=== PATIENT | male | born 2000 | race Caucasian/White ===

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

== ENCOUNTER 2019-05-26 15:42 | Emergency (ER) | payer MEDICAID ==
[~2019-05-26] VITALS: Ht 185.4 cm; Wt 79.5 kg
[~2019-05-26 15:42] MED LIST changes: +DOXYCYCLINE HY100 M2 PO; +TORADOL10 MG PO
[2019-05-26 15:46] VITALS: Ht 185.4 cm; Wt 79.5 kg
[2019-05-26 16:42] LABS: BASOPHILS 0.6 % (0-2); EOSINOPHILS 1.4 % (0-7); HEMATOCRIT 45.4 % (42.0-54.0); HEMOGLOBIN 14.3 g/dL (13.5-17.5); IMMATURE GRANULOCYTES 0.1 % (0-5); LYMPHOCYTES 32.5 % (15-50); MCH 23.6 pg (26.0-34.0); MCHC 31.5 g/dL (31.0-37.0); MEAN PLATELET VOLUME 10.1 fL (7.4-10.4); MONOCYTES 11.1 % (2-11); NEUTROPHILS 54.3 % (40-80); RBC 6.05 10x6/uL (4.20-6.10); RDW 13.5 % (11.5-14.5); WBC 6.9 10x3/uL (4.8-10.8)
[2019-05-26 16:49] LABS: PLATELET COUNT 240 10x3/uL (130-400)
[2019-05-26 16:50] LABS: CALC OSMOLALITY 283 mosm/kg (275-300); CALCIUM 9.2 mg/dL (8.5-10.1); CARBON DIOXIDE 21.3 mmol/L (21.0-32.0); CHLORIDE - SERUM 105 mmol/L (98-107); CREATININE - SERUM 1.2 mg/dL (0.6-1.3); GLUCOSE 120 mg/dL (74-106); SODIUM 143 mmol/L (136-145); UREA NITROGEN 8 mg/dL (7-18); eGFR NON AFRICAN AMERICAN 82 mL/min (90-120)
[2019-05-26 16:54] LABS: INR 1.09 (0.85-1.17); PROTIME 13.6 SECONDS (11.6-15.0)
[2019-05-26 16:56] LABS: ALBUMIN 4.6 g/dL (3.4-5.0); ALKALINE PHOSPHATASE 92 U/L (46-116); ALT (SGPT) 22 U/L (10-68); BILIRUBIN - TOTAL 0.37 mg/dL (0.2-1.3); PROTEIN - SERUM 8.5 g/dL (6.4-8.2)
[2019-05-26] MEDS ORDERED: HYDROCODONE-A1 UDTA2 PO (17:14)
[2019-05-26] MEDS ORDERED: KEFLEX500 MG PO (17:14)
[2019-05-26 20:52] VITALS: BP 133/79
== END 2019-05-26 20:53 | disposition home or self-care (01) ==
LOC: D.ER 15:42
PROVIDERS: Family Medicine
DX: S71.101A Unspecified open wound, right thigh, initial encounter (principal); X95.9XXA Assault by unspecified firearm discharge, initial encounter; Y93.9 Activity, unspecified; Y92.9 Unspecified place or not applicable

== ENCOUNTER 2019-06-13 17:46 | Emergency (ER) | payer OTHER ==
[~2019-06-13] VITALS: Ht 185.4 cm; Wt 68.2 kg
[~2019-06-13 17:46] MED LIST changes: +HYDROCODONE-A1 UDTA2 PO; +KEFLEX500 MG PO
[2019-06-13 17:48] VITALS: Ht 185.4 cm; Wt 68.2 kg
[2019-06-13] MEDS ORDERED: IBUPROFEN800 MG PO (17:56)
[2019-06-13] MEDS ORDERED: MUPIROCIN22 GM TOPICAL (17:56)
[2019-06-13 18:22] VITALS: BP 131/93
== END 2019-06-13 18:23 | disposition home or self-care (01) ==
LOC: D.ER 17:46
DX: M79.604 Pain in right leg (principal); Z87.898 Personal history of other specified conditions

== ENCOUNTER 2019-11-20 23:53 | Observation (INO) | payer MEDICAID ==
[~2019-11-20] VITALS: Ht 185.4 cm; Wt 72.6 kg
[~2019-11-20 23:53] MED LIST changes: +MUPIROCIN22 GM TOPICAL
[2019-11-21] VITALS (9 sets, daily range): BP systolic 123–140; BP diastolic 60–98; Ht 185.4 cm; Wt 72.6 kg
--- NOTE | 2019-11-21 00:22 | NUR ---
PT LEFT FOR ORDERED IMAGING AT THIS TIME VIA STRETCHER.
--- NOTE | 2019-11-21 00:24 | NUR ---
THIS NURSE RETURNED CALL TO PT'S MOTHER, CODEY STONER AT [phone] PT MOTHER AGREES TO CALL BACK IN AN HOUR OR SO WHEN WE MIGHT HAVE MORE INFORMATION.
[2019-11-21 00:27] LABS: HEMATOCRIT 42.2 % (42.0-54.0); HEMOGLOBIN 12.7 g/dL (13.5-17.5); LYMPHOCYTES 23.7 % (15-50); MCH 22.7 pg (26.0-34.0); MCHC 30.1 g/dL (31.0-37.0); MCV 75.5 fL (80.0-100.0); MEAN PLATELET VOLUME 9.9 fL (7.4-10.4); NEUTROPHILS 64.1 % (40-80); PLATELET COUNT 216 10x3/uL (130-400); RBC 5.59 10x6/uL (4.20-6.10); RDW 13.4 % (11.5-14.5); WBC 6.7 10x3/uL (4.8-10.8)
[2019-11-21 00:30] LABS: BILIRUBIN NEGATIVE (NEGATIVE); GLUCOSE NEGATIVE (NEGATIVE); KETONE NEGATIVE (NEGATIVE); NITRITE NEGATIVE (NEGATIVE); UROBILINOGEN NORMAL (NORMAL)
[2019-11-21 00:42] LABS: CALC OSMOLALITY 281 mosm/kg (275-300); CALCIUM 9.1 mg/dL (8.5-10.1); CARBON DIOXIDE 29.4 mmol/L (21.0-32.0); CHLORIDE - SERUM 107 mmol/L (98-107); CREATININE - SERUM 0.9 mg/dL (0.6-1.3); GLUCOSE 103 mg/dL (74-106); SODIUM 142 mmol/L (136-145); UREA NITROGEN 9 mg/dL (7-18); eGFR NON AFRICAN AMERICAN > 90 mL/min (90-120)
[2019-11-21 00:47] LABS: UDS - AMPHET NEGATIVE QUAL (NEGATIVE); UDS - BARB NEGATIVE QUAL (NEGATIVE); UDS - BENZO NEGATIVE QUAL (NEGATIVE); UDS - COCAINE NEGATIVE QUAL (NEGATIVE); UDS - OPIATE NEGATIVE QUAL (NEGATIVE); UDS - PCP NEGATIVE QUAL (NEGATIVE); UDS - THC NEGATIVE QUAL (NEGATIVE)
[2019-11-21 00:48] LABS: ALBUMIN 4.2 g/dL (3.4-5.0); ALKALINE PHOSPHATASE 110 U/L (30-120); ALT (SGPT) 29 U/L (10-68); BILIRUBIN - TOTAL 0.15 mg/dL (0.2-1.3); MAGNESIUM - SERUM 2.1 mg/dL (1.8-2.4); PROTEIN - SERUM 7.9 g/dL (6.4-8.2)
--- NOTE | 2019-11-21 01:02 | NUR ---
PT SPEAKING TO STAFF NOW. ALERT, NOT ORIENTED TO SELF, SITUATION OR PLACE. PT REORIENTED TO SELF, SITUATION AND PLACE. PT GAVE NURSE NUMBER FOR MOTHER TO CALL, FROM [facility]. THIS NURSE CALLED AND MOTHER SPOKE TO HIM FOR SHORT PERIOD OF TIME.
[2019-11-21 01:34] LABS: % SATURATION 13 % (15-55); IRON 51 ug/dl (35-150); TOTAL IRON BIND CAPACITY 391 ug/dl (260-445); UNSAT IRON BIND CAPACITY 340 ug/dl (150-375)
--- NOTE | 2019-11-21 02:30 | NUR ---
PT SITTING UP IN BED, CALLING FAMILY MEMBERS. SPEECH IS MORE COHERANT NOW. NOTED THAT PT IS HAVING CONVERSATIONS WITH HIS FAMILY. PT IS AAO X3 AT THIS TIME.
--- NOTE | 2019-11-21 03:40 | NUR ---
PT IS AT ORDERED MR SCAN.
[2019-11-21 04:05] LABS: GLUCOSE - CSF 72 MG/DL (40-75); PROTEIN - CSF 26 MG/DL (12-60)
[2019-11-21 04:07] LABS: APPEARANCE - CSF CLEAR; RBC - CSF 0 cmm (0-0)
--- NOTE | 2019-11-21 04:22 | NUR ---
PT ON PHONE WITH GIRLFRIEND, SPEAKING IN FLUENT SENTENCES. EDP NOTIFIED. PT REQUESTING FOOD, THIS NURSE EXPLAINED TO PT THAT HE WILL BE NPO UNTIL SEEN BY DOCTOR THIS AM. PT STATES "OKAY." CALL LIGHT WITHIN REACH, BED LOW AND SIDERAILS UP X2.
--- NOTE | 2019-11-21 05:05 | NUR ---
RECEIVED PT FROM ER VIA STRETCHER. STAFF X4 TRANSFERRED PT FROM STRETCHER TO BED. PT DROWSY AND POOR ATTENTION DURING QUESTIONING. ORIENTED TO SELF AND TIME ONLY. CONFUSED. NONPROD COUGH NOTED. VERY WEAK. NS @ 100 ML/HR INFUSING IN LT AC. PLACED IN SUPINE POSITION AND SIGN PLACED OVER BED TO LIE FLAT UNTIL 0800 DUE TO POST LUMBAR PUNCTURE. INSTRUCTED OF NPO STATUS. DENIES ANY HOME MEDS. SR ELEVATED X3. CL IN REACH. RESP SHALLOW, NONLABORED. BED ALARM IN USE FOR PT SAFETY. INSTRUCTED NOT TO GET UP WITHOUT USING CALL [facility]. V/S STABLE.
--- NOTE | 2019-11-21 06:34 | NUR ---
LYING SUPINE IN BED WITH EYES CLOSED. RESP NONLABORED. HAS BEEN SLEEPING SINCE ADMISSION ASSESSMENT COMPLETED. BED ALARM ON. CL IN REACH. NO DISTRESS.
--- NOTE | 2019-11-21 07:16 | NUR ---
PATIENT SLEEPING. LUNGS CLEAR BILATERALLY. HEART SOUNDS S1 AND S2 HEARD IN ALL [place]. BOWEL SOUNDS ACTIVE X 4. IV TO LEFT AC PATENT WITHOUT REDNESS. BED LOW. FALL PRECAUTIONS IN PLACE. CALL [facility] AND PERSONAL ITEMS IN REACH. WILL CONTINUE TO MONITOR.
--- NOTE | 2019-11-21 10:33 | NUR ---
PATIENT REFUSING TO STAY CONNECTED TO IV FLUIDS IV TO LEFT AC SL. WILL SPEAK WITH MD ON ROUNDS.
--- NOTE | 2019-11-21 12:27 | NUR ---
SPOKE WITH PATIENT SIGNIFICANT OTHER. STATES PATIENT NEVER LOST CONSCIOUSNESS DURING "SEIZURE." STATES PATIENT WAS COMMUNICATING VERBALLY WITH HER UP UNTIL TAKEN BY EMS. STATES PATIENT COULD NOT CLOSE LEFT HAND. STATES PATIENTS "NERVES WERE ACTING UP". WHEN ASKED FOR CLARIFICATION STATES THAT PATIENT WAS "FREAKING OUT" AND HAVING "ANXIETY." SOM SINCLAIR MADE AWARE.
--- NOTE | 2019-11-21 14:05 | NUR ---
PATIENT SLEEPING. WILL CONTINUE TO MONITOR.
--- NOTE | 2019-11-21 15:12 | NUR ---
PATIENT REFUSES NICOTINE PATCH.
--- NOTE | 2019-11-21 16:07 | NUR ---
ATTEMPTED TO CALL [facility] THREE TIMES FOR EEG ORDER. NO ANSWER.
[2019-11-21] MEDS ORDERED: KEPPRA500 MG PO (16:58)
--- NOTE | 2019-11-21 17:22 | NUR ---
IV REMOVED FROM LEFT AC WITH TIP INTACT. PATIENT'S MOM CALLED TO COME GET PATIENT.
--- NOTE | 2019-11-21 18:24 | NUR ---
PATIENT DC HOME WITH ALL BELONGINGS.
== END 2019-11-21 18:24 | disposition home or self-care (01) ==
LOC: D.ER 23:53 → D.MS 11-21 02:21 → OBSVTIME 11-21 02:21 → D.MS 11-21 18:24
PROVIDERS: Emergency Medicine; ADMIT Family Medicine; ATTEND Family Medicine
DX: G40.409 Other generalized epilepsy and epileptic syndromes, not intractable, without status epilepticus (principal); D50.9 Iron deficiency anemia, unspecified; F17.203 Nicotine dependence unspecified, with withdrawal; F12.10 Cannabis abuse, uncomplicated

== ENCOUNTER 2019-11-24 03:20 | Emergency (ER) | payer MEDICAID ==
[~2019-11-24] VITALS: Ht 185.4 cm; Wt 68.2 kg
[~2019-11-24 03:20] MED LIST changes: +KEPPRA500 MG PO
[2019-11-24 03:30] VITALS: Ht 185.4 cm; Wt 68.2 kg
[2019-11-24 03:49] LABS: CALC OSMOLALITY 278 mosm/kg (275-300); CALCIUM 9.1 mg/dL (8.5-10.1); CARBON DIOXIDE 25.4 mmol/L (21.0-32.0); CHLORIDE - SERUM 105 mmol/L (98-107); CREATININE - SERUM 1.1 mg/dL (0.6-1.3); GLUCOSE 115 mg/dL (74-106); POTASSIUM - SERUM 3.3 mmol/L (3.5-5.1); SODIUM 140 mmol/L (136-145); UREA NITROGEN 10 mg/dL (7-18); eGFR NON AFRICAN AMERICAN > 90 mL/min (90-120)
[2019-11-24 03:53] LABS: BASOPHILS 0.3 % (0-2); EOSINOPHILS 3.1 % (0-7); HEMATOCRIT 42.5 % (42.0-54.0); HEMOGLOBIN 13.2 g/dL (13.5-17.5); IMMATURE GRANULOCYTES 0.1 % (0-5); LYMPHOCYTES 37.4 % (15-50); MCHC 31.1 g/dL (31.0-37.0); MCV 73.9 fL (80.0-100.0); MEAN PLATELET VOLUME 9.1 fL (7.4-10.4); MONOCYTES 11.3 % (2-11); NEUTROPHILS 47.8 % (40-80); PLATELET COUNT 199 10x3/uL (130-400); RBC 5.75 10x6/uL (4.20-6.10); RDW 13.6 % (11.5-14.5); WBC 6.7 10x3/uL (4.8-10.8)
[2019-11-24 03:54] LABS: ALBUMIN 4.2 g/dL (3.4-5.0); ALKALINE PHOSPHATASE 95 U/L (30-120); ALT (SGPT) 26 U/L (10-68); BILIRUBIN - TOTAL 0.27 mg/dL (0.2-1.3); CREATINE KINASE 173 UL (21-232); MAGNESIUM - SERUM 1.5 mg/dL (1.8-2.4); PROTEIN - SERUM 7.9 g/dL (6.4-8.2)
[2019-11-24] MEDS ORDERED: KEPPRA500 MG PO (05:00)
[2019-11-24 07:00] VITALS: BP 118/70
== END 2019-11-24 07:25 | disposition home or self-care (01) ==
LOC: D.ER 03:20
PROVIDERS: Family Medicine
DX: R56.9 Unspecified convulsions (principal)